=== PATIENT | female | born 1960 ===

== ENCOUNTER → 2020-07-08 13:26 | Outpatient (CLI) | payer OTHER, SELFPAY ==
--- NOTE | 2020-07-08 13:32 | DI.CT.S_ITS ---
PROCEDURE: CT CERVICAL SPINE WO CON INDICATIONS: Cervical radiculopathy TECHNIQUE: Noncontrast 3 mm thick sections acquired from the skull base to the T4 level. Sagittal and coronal reformats were then constructed. For radiation dose reduction, the following was used: automated exposure control, adjustment of mA and/or kV according to patient size. COMPARISON: None. FINDINGS: Image quality: Excellent. Bones: Straightening of the usual cervical lordosis. Otherwise normal alignment without listhesis. Vertebral body heights maintained. Disc height loss from C3-C4 through C6-C7 with associated degenerative endplate changes. Vacuum disc phenomenon from C3-C4 through C5-C6. Facet and uncovertebral hypertrophy produce mild bilateral neural foraminal stenosis from C3-C4 through C6-C7. There is no spinal canal stenosis. Soft tissues: Prevertebral soft tissues are normal in thickness. No paravertebral hematomas. No apical pneumothoraces. IMPRESSION: Mild multilevel multifactorial degenerative changes producing mild bilateral neural foraminal stenosis from C3-C4 through C6-C7. Dictated by: Jt Jones M.D. on 07/08/2020 at 14:31 Approved by: Jt Jones M.D. on 07/08/2020 at 14:38
--- NOTE | 2020-07-08 13:32 | DI.CT.S_ITS ---
PROCEDURE: CT LUMBAR SPINE WO CON INDICATIONS: Cervical radiculopathy TECHNIQUE: Noncontrast 3 mm thick sections acquired from the T12 level to the sacrum. Sagittal and coronal reformats were constructed. For radiation dose reduction, the following was used: automated exposure control. COMPARISON: [facility], CR, XR LUMBAR SPINE 2 OR 3 VIEWS, 01/06/2020, 13:27. [facility], CT, CT MYELOGRAM LUMBAR SPINE, 05/18/2017, 11:32. FINDINGS: Image quality: Excellent. Bones: There is normal bony alignment. No acute vertebral body compression fractures. Schmorl's nodes noted in the superior endplates of the L2, L3, L4, L5 and S1 vertebral bodies. Schmorl's nodes noted in the inferior endplates of the L1, L2, L3 and L4 vertebral bodies. No suspicious lytic or blastic bony lesions. . No pars defects. T12-L1: Disc height is normal. Mild, diffuse disc bulge. No central stenosis. No neural foraminal narrowing. No neural compression. L1-L2: Mild loss of disc height. Mild, diffuse disc bulge. No central stenosis. No neural foraminal narrowing. No neural compression. L2-L3: Disc height is normal. Mild, diffuse disc bulge. No central stenosis. No neural foraminal narrowing. No neural compression. L3-L4: Loss of disc height. Vacuum disc phenomenon. Moderate, diffuse disc bulge. Mild bilateral facet hypertrophy. Moderate narrowing of the central canal. Mild bilateral neural foraminal narrowing. No neural compression. L4-L5: Slight loss of disc height. Vacuum disc phenomenon. Moderate, diffuse disc bulge. Mild bilateral facet hypertrophy. Moderate narrowing of the central canal. Mild bilateral neural foraminal narrowing. No neural compression. L5-S1: Slight loss of disc height. Vacuum disc phenomena. Mild, diffuse disc bulge. Mild bilateral facet hypertrophy. Mild narrowing of the central canal. Mild bilateral neural foraminal narrowing. No neural compression. Soft tissues: No retroperitoneal masses or hematomas. Visualized aorta is normal in caliber. Neurostimulator lead projects into the thoracic spine at the level of the T12-L1 interspinous space and distal terminus is not visualized. Neurostimulator of the projects into the lumbar spine at the level of the L2-L3 interspinous space with distal terminus at the level of the S1-S2 vertebral bodies. Neurostimulator leads are intact where visualized. IMPRESSION: 1. Multilevel degenerative disc disease. 2. Multilevel facet arthropathy. 3. Moderate L3-L4 and L4-L5 central canal narrowing. Mild L5-S1 central canal narrowing. 4. Mild bilateral L3-L4, L4-L5 and L5-S1 neural foraminal narrowing. 5. No neural compression. Dictated by: Rosa Maria Fountain MD, PhD on 07/08/2020 at 16:53 Approved by: Rosa Maria Fountain MD, PhD on 07/08/2020 at 16:59
== END ==
PROVIDERS: Family Provider Orthopaedic Surgery; PCP Nurse Practitioner Family; Referring Provider Physical Medicine & Rehabilitation; Visit Provider Physical Medicine & Rehabilitation
DX: M47.22 Other spondylosis with radiculopathy, cervical region (principal); M48.02 Spinal stenosis, cervical region; M43.17 Spondylolisthesis, lumbosacral region; M51.16 Intervertebral disc disorders with radiculopathy, lumbar region; M51.17 Intervertebral disc disorders with radiculopathy, lumbosacral region; M47.26 Other spondylosis with radiculopathy, lumbar region; M47.27 Other spondylosis with radiculopathy, lumbosacral region; M48.061 Spinal stenosis, lumbar region without neurogenic claudication; M48.07 Spinal stenosis, lumbosacral region; Z98.890 Other specified postprocedural states
CPT/HCPCS: 72125; 72132

== ENCOUNTER → 2020-08-30 08:55 | Outpatient (CLI) | payer OTHER, SELFPAY ==
[2020-08-31 02:19] LABS: COVID19 Sendout Not Detected (Not Detect)
== END ==
PROVIDERS: Family Provider Orthopaedic Surgery; PCP Nurse Practitioner Family; Visit Provider Physician Assistant
DX: Z11.59 Encounter for screening for other viral diseases (principal)
CPT/HCPCS: 87635

== ENCOUNTER 2020-09-02 07:53 | Outpatient (CLI) | payer OTHER, SELFPAY ==
[2020-09-02] VITALS (9 sets, daily range): BP systolic 112–148; BP diastolic 60–74; PULSE 69–77; RESP 10–17; TEMP 36.3; O2SAT 97–100
--- NOTE | 2020-09-02 07:56 | DI.RAD.S_ITS ---
PROCEDURE: PAIN C/T INTERLAMINAR INJECT INDICATIONS: CERVICAL RADICULOPATHY COMPARISON: [facility], CT, CT CERVICAL SPINE WO CON, 07/08/2020, 13:40. FINDINGS: Fluoroscopic spot filming was performed to verify placement of spinal needles at the C6-C7 level(s), as labeled on the films. Appropriate location(s) of the needle tip(s) was confirmed by injection of iodinated contrast. IMPRESSION: Intraprocedural examination within normal limits. Dictated by: Afshin Levy M.D. on 09/02/2020 at 12:11 Approved by: Afshin Levy M.D. on 09/02/2020 at 12:12
[2020-09-02] MEDS: MIDAZOLAM 5 MG/5 ML VIAL IV (09:16)
[2020-09-02] MEDS: fentaNYL 100 MCG/2 ML INJ 50 MCG IV (09:22)
[2020-09-02] MEDS: IOPAMIDOL 15 ML VIAL 3 ML INJ (09:30)
[2020-09-02] MEDS: DEXAMETHASONE 10 MG/ML VIAL 30 MG INJ (09:31)
[2020-09-02] MEDS: BUPIVACAINE 0.25% (PF) VIAL 2 ML INJ (09:31)
--- NOTE | 2020-09-02 09:32 | P.PCN_ITS ---
Date/Time/Diagnoses Date of procedure: 09/02/20 Time of procedure: 09:32 Pre-procedure diagnosis: 1. CERVICAL STENOSIS, 2. CERVICAL HNP WITH UPPER EXTREMITY RADICULAR FEATURES Post-procedure diagnosis: same Procedure Notes Procedure: 1. FLUORSCOPICALLY GUIDED CONTRAST CONTROLLED INTERLAMINAR EPIDURAL STEROID INJECTION - C6/7 TL MAHI Indications: Jhonatan is referred by Dr. Meier for treatment of Cervical HNP with Upper Extremity Paresthesias. Physician: Arya Hassan Total Fluoroscopy time (seconds): 13 Total sedation minutes: 21 Complications: none Procedure in detail & Post-procedure care: FINDINGS Cervical Stenosis due to disc deterioration and nerve root irritation and nerve root irritation DESCRIPTION OF PROCEDURE Fluoroscopically guided, contrast-controlled C6/7 translaminar epidural steroid injection with conscious sedation. Following review of allergy and review of potential side effects and complications, including, but not necessarily limited to, infection, allergic reaction, local tissue breakdown, temporary as well as permanent nerve injury, stroke, paralysis, and possible , the patient indicated that patient understood and agreed to proceed. An informed consent document was signed by the patient, witnessed by a nurse, and placed in the patient's chart. Additionally, other treatment options including modalities, medications, and physical therapy were reviewed with the patient. After review of previous anaesthesic history and IV conscious sedation the patient was deemed safe to proceed with today?s procedure with IV conscious sedation as ASA class II designation. Safety time-out was performed to confirm patient ID, procedure to be performed and site of procedure. IV sedation was accomplished with a combination of 2mg of Versed and 50mcg of Fentanyl administered by the RN after DO order, titrated to patient comfort during the course of the procedure while the patient remained responsive to all verbal commands. In the prone position, following sterile prep and drape of the cervical region, the C6/7 translaminar space was identified fluoroscopically. The skin was anesthetized via a 25-gauge 1.5-inch needle with 1% lidocaine solution. At this point, a 25-gauge, 2.5-inch short bevel spinal needle was atraumatically introduced and advanced under fluoroscopic guidance into epidural space at the C6/7 translaminar space. Depth was confirmed on lateral view. Radiological data, including multiple fluoroscopic views of the cervical spine, reveal a spinal needle at the C6/7 translaminar space. Lateral views then show placement of the needle in the epidural space. Subsequent views show contrast material flowing superiorly and inferiorly in the epidural space. DSA fluoroscopy with live contrast injection, once again, confirmed no vascular or intrathecal uptake. At this point, using loss of resistance technique with saline and air, the epidural space was entered. Following negative aspiration, injection of a pproximately 1.5 cc of [id number]-[id number] with live fluoroscopy in the AP view confirmed epidural flow in the epidural space without vascular or intrathecal uptake observed. Subsequently, a test dose of 1 cc of 1% lidocaine solution was injected and patient was observed for two minutes without signs or symptoms of complications, including abdominal pain, shortness of breath, bilateral upper or lower extremity weakness, nausea and vomiting, prior to steroid injection. At this point, 2cc or 20mg of dexamethasone was then injected without incident. The patient tolerated the procedure well without signs or symptoms of complications prior to being transferred to the recovery area for further monitoring, The patient was then transferred to the recovery area where they were observed for an appropriate period of time after the injection. The patient reported a VAS score of 6 prior to the procedure and a post-procedure VAS of 0. POST OP INSTRUCTIONS The patient was provided a Pain Log to continue to record their response to the target-specific procedure prior to follow-up visit with the referring provider. Additionally, specific post-injection care instructions and a contact number to our office were provided if concerns arise regarding possible complications associated with the procedure are suspected.
--- NOTE | 2020-09-02 09:46 | PC.NURSE ---
Versed and Fentanyl administered by THADDEUS Schilling. All other meds administered by Dr. Hassan to procedural site.
--- NOTE | 2020-09-02 16:00 | PC.NURSE ---
All Sedation Medication administered by THADDEUS Schilling. All other procedural meds administered by Dr. Hassan
== END 2020-09-02 10:00 | disposition home or self-care (01) ==
LOC: RAD 07:56
PROVIDERS: Family Provider Orthopaedic Surgery; PCP Nurse Practitioner Family; Referring Provider Physical Medicine & Rehabilitation; Visit Provider Physical Medicine & Rehabilitation
DX: M48.02 Spinal stenosis, cervical region (principal); M50.123 Cervical disc disorder at C6-C7 level with radiculopathy
CPT/HCPCS: 62321; 99152; J1100; J2250; J3010